=== PATIENT | male | born 1945 | race Caucasian/White ===

== ENCOUNTER 2016-06-07 15:23 | Inpatient (IN) | payer OTHER ==
[~2016-06-07] VITALS: Ht 175.3 cm; Wt 112.1 kg
[2016-06-07] MEDS ORDERED: SODIUM CHLORIDE 0.9% 1000ML 1,000 ML IV SCH (15:41)
--- NOTE | 2016-06-07 16:00 | DIAGNOSTIC IMAGING REPORT ---
CT SCAN OF THE BRAIN WITHOUT IV CONTRAST CLINICAL HISTORY: Aphasia. COMPARISON STUDY: No priors. TECHNIQUE: Unenhanced axial CT scan of the brain is performed from the vertex to the skull base. CT DOSE: 537.48 mGy.cm FINDINGS: Brain parenchyma: There are age-related involutional changes noting moderate patchy subcortical and periventricular microangiopathic change. There is no hemorrhage, mass effect, or evidence of acute territorial ischemia by CT criteria. Mineralization is noted in the basal ganglia. Martinez-white matter is preserved. No extra-axial fluid collection is seen. Ventricles, sulci, cisterns: Prominent secondary to involutional change. Intracranial vasculature: There is atherosclerotic calcification of the cavernous carotid and vertebral arteries. Calvarium: Unremarkable. Sinuses and mastoids: The visualized paranasal sinuses are clear. The mastoid air cells are well pneumatized. Orbits: The bony orbits are grossly intact. There is a left ocular lens implant. IMPRESSION: There is no hemorrhage, mass effect, or evidence of acute territorial ischemia by CT criteria. Electronically signed by: Mike Ann M.D. 06/07/2016 3:59 PM Dictated Date/Time: 06/07/2016 3:56 PM
--- NOTE | 2016-06-07 16:06 | DIAGNOSTIC IMAGING REPORT ---
CHEST ONE VIEW PORTABLE HISTORY: Stroke symptoms COMPARISON: None. FINDINGS: The lungs are clear. Cardiac silhouette is mildly enlarged. No pleural effusions. No pneumothorax. IMPRESSION: Mild cardiomegaly. Electronically signed by: Thor Paris M.D. 06/07/2016 4:05 PM Dictated Date/Time: 06/07/2016 4:04 PM
[2016-06-07] MEDS ORDERED: LABETALOL HCL IV 5 MG/ML 20ML IV STA ×2 (16:35→18:31)
[2016-06-07 16:47] LABS: BASO % 0.3 %; BASO ABS # 0.02 K/uL (0-0.2); COMPLETE YES; EOS % 4.7 %; HEMATOCRIT 37.7 % (42-52); IG% 0.8 %; LYMPH % 28.2 %; LYMPH ABS # 2.06 K/uL (1.2-3.4); MEAN CELL VOLUME 81.6 fL (80-100); MEAN CORPUSCULAR HEMOGLOBIN 28.8 pg (25-34); MEAN CORPUSCULAR HGB CONC 35.3 g/dl (32-36); MEAN PLATELET VOLUME 9.6 fL (7.4-10.4); MONO % 5.8 %; NEUT % 60.2 %; PLATELET COUNT 155 K/uL (130-400); RED BLOOD COUNT 4.62 M/uL (4.7-6.1)
[2016-06-07 16:55] LABS: PARTIAL THROMBOPLASTIN RATIO 0.9; PROTHROMBIN TIME (PATIENT) 10.9 SECONDS (9.0-12.0)
[2016-06-07] MEDS ORDERED: METF-384 PO (17:00)
[2016-06-07] MEDS ORDERED: OMEG10007 PO (17:00)
[2016-06-07] MEDS ORDERED: MELO7.5T5 PO (17:00)
[2016-06-07] MEDS ORDERED: GLIP5TAB11 PO (17:00)
[2016-06-07] MEDS ORDERED: ASPI-232 PO (17:00)
[2016-06-07] MEDS ORDERED: MAGN400T6 PO (17:00)
[2016-06-07] MEDS ORDERED: LSN5 PO (17:00)
[2016-06-07] MEDS ORDERED: METO50TA16 PO (17:00)
[2016-06-07] MEDS ORDERED: MULTTAB58 PO (17:00)
[2016-06-07 17:03] LABS: BUN/CREATININE RATIO 16.3 (10-20); CALCIUM 8.7 mg/dl (8.5-10.1); POTASSIUM 4.4 mmol/L (3.5-5.1)
[2016-06-07] MEDS ORDERED: INSDGI SC ×2 (17:03)
[2016-06-07 17:08] LABS: CKMB/CK RATIO 2.3 (0-3.0)
[2016-06-07] MEDS ORDERED: GLUCOSE 10 TABS/TUBE PO PRN (18:15)
[2016-06-07] MEDS ORDERED: POLYETHYLENE (MIRALAX) 17 GM PACK PO PRN (18:15)
[2016-06-07] MEDS ORDERED: GLUCAGON FOR INJ 1 MG VIAL SQ PRN (18:15)
[2016-06-07] MEDS ORDERED: ONDANSETRON INJ 2 MG/ML 2 ML VIAL IV PRN (18:15)
[2016-06-07] MEDS ORDERED: GLUCOSE 40% GEL 15 GM TUBE PO PRN (18:15)
[2016-06-07] MEDS ORDERED: ACETAMINOPHEN 325 MG TAB PO PRN (18:15)
[2016-06-07] MEDS ORDERED: DEXTROSE 50% 50 ML SYR IV PRN (18:15)
[2016-06-07] MEDS ORDERED: IV FLUIDS COMPLETED PRN (18:45)
--- NOTE | 2016-06-07 18:56 | History and Physical ---
History & Physical Date & Time of Service: Jun 07, 2016 at 18:31 Chief Complaint: Aphasia Primary Care Physician: No Doctor, Assigned History of Present Illness Source: patient, family 70 yoM with HTN presents with difficulty speaking for <1 minute today while driving through the bank. He reports sitting in his car and went to speak to the back vault teller, and although everything sounded clear in his head, the words came out garbled. He was unable to speak correctly for less than one minute and spontaneously cleared. He reports having a headache in the posterior head for the past two days, which is different for him, but denies any acute visual changes, drooling, facial droop, difficulty with or painful swallowing, difficulty ambulating before or after the event or any other symptom including no chest pain, shortness of breath, numbness or tingling, palpitations, abdominal pain, UTI symptoms or cold symptoms. Nothing like this has happened to him before and he denies a history of stroke or heart disease. He is overweight, has BARBARA and hypertension and receives his care through the [facility]. He just completed a heat CT and MRI of the brain last week for workup of shuffled gait for the past 6 months along with some mild memory loss for the past year. He was incidentally found to be B12 deficient, and found to have low Mg per 's report. He is a poorly controlled diabetic with apparent eye issues but no known neuropathy or other diabetic complication. He was told he needed a new spectacle prescription recently and was looking to change his glasses soon. Currently, he is without neuro deficit, headache or any other active issue at this time. He reports a family history of TIA in his sister, and a stroke in his aunt. He denies any history of migraines or seizures, and although he didn't check his sugar today, he denies any low blood sugars and reports eating breakfast and feeling well prior to and after the event. 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 Status: Chronic (2) DMII (diabetes mellitus, type 2) Status: Chronic (3) H/O pulmonary thrombosis Status: Chronic (4) Hypertension Status: Chronic (5) Obesity Status: Chronic (6) BARBARA (obstructive sleep apnea) Status: Chronic Family History FH: dementia FH: diabetes mellitus FHx: stroke Stroke or transient ischemic attack in sister Social History Smoking Status: Never Smoker Smokeless Tobacco Use: No Alcohol Use: none Drug Use: none Marital Status: Housing status: lives with significant other Occupational Status: retired Immunizations History of Influenza Vaccine: Yes Influenza Vaccine Date: Oct 30, 2015 History of Tetanus Vaccine?: Yes Tetanus Immunization Date: Nov 06, 2011 History of Pneumococcal: Yes Pneumococcal Date: Nov 06, 2011 History of Hepatitis B Vaccine: No Multi-Drug Resistant Organisms History of MDRO: No Allergies Coded Allergies: No Known Allergies (Unverified , 06/07/16) Home Medications Scheduled Aspirin (Aspir-81), 1 TAB PO DAILY Fish Oil ([place]-3), 1,000 MG PO DAILY Glipizide (Glucotrol), 5 MG PO BID Insulin Glargine (Lantus), 15 UNITS SC QAM Insulin Glargine (Lantus), 25 UNITS SC QPM Lisinopril (Lisinopril), 5 MG PO QAM Magnesium Oxide (Mag-Ox), 400 MG PO DAILY Metformin Hcl (Glucophage), 1,000 MG PO BID Metoprolol Tartrate (Lopressor) (Lopressor), 50 MG PO BID Multiple Vitamin (Multivitamin), 1 TAB PO DAILY Miscellaneous Medications Meloxicam (Mobic), 15 MG PO Review of Systems All systems were reviewed and negative except as listed in HPI above. Physical Exam Vital Signs Date Time Temp Pulse Resp B/P Pulse Ox O2 Delivery O2 Flow Rate FiO2 06/07/16 18:05 76 18 190/89 98 Room Air 06/07/16 17:35 62 18 182/81 98 Room Air 06/07/16 17:05 56 18 169/91 98 Room Air 06/07/16 16:35 57 16 175/79 98 Room Air 06/07/16 16:20 68 16 181/81 99 Room Air 06/07/16 16:05 51 16 173/84 99 Room Air 06/07/16 15:50 52 18 178/85 98 Room Air 06/07/16 15:50 98 Room Air 06/07/16 15:43 60 06/07/16 15:30 36.5 65 18 199/99 98 Room Air GEN: WNWD, in no acute distress, alert and appropriate HEENT: NC/AT, PERRL, normal sclerae CARDIO: reg rate, S1/2 heard without m/g/r LUNGS: CTA bilaterally, no crackles, rales or wheezes, good diaphragmatic excursion ABD: soft, protuberant, non-tender, non-distended, no rebound or guarding, +BS EXTREMITY: RP and DP palpable 2+ bilat, no LE swelling or edema, extremities are warm and well-perfused NEURO: CN 2-12 intact, sensation intact throughout, coordination intact (finger to nose, heel to lan, Pham) , no pronator drift, 2 BR reflex bilat, could not elicit knee reflexes. Gait was assessed at bedside and was limited as patient was trailing IV pole and hooked up to monitor, however, no turning en bloc and no shuffled gait was apparent. MUSC: 5/5 strength throughout, no focal deficits SKIN: warm and dry Diagnostics Laboratory Results Results Past 24 Hours Test 06/07/16 16:03 06/07/16 16:04 06/07/16 16:33 06/07/16 18:24 Range/Units Bedside Glucose 113 70-99 mg/dl Bedside Prothrombin Time INR 1.0 0.9-1.1 White Blood Count 7.30 4.8-10.8 K/uL Red Blood Count 4.62 4.7-6.1 M/uL Hemoglobin 13.3 14.0-18.0 g/dL Hematocrit 37.7 42-52 % Mean Corpuscular Volume 81.6 80-100 fL Mean Corpuscular Hemoglobin 28.8 25-34 pg Mean Corpuscular Hemoglobin Concent 35.3 32-36 g/dl Platelet Count 155 130-400 K/uL Mean Platelet Volume 9.6 7.4-10.4 fL Neutrophils (%) (Auto) 60.2 % Lymphocytes (%) (Auto) 28.2 % Monocytes (%) (Auto) 5.8 % Eosinophils (%) (Auto) 4.7 % Basophils (%) (Auto) 0.3 % Neutrophils # (Auto) 4.40 1.4-6.5 K/uL Lymphocytes # (Auto) 2.06 1.2-3.4 K/uL Monocytes # (Auto) 0.42 0.11-0.59 K/uL Eosinophils # (Auto) 0.34 0-0.5 K/uL Basophils # (Auto) 0.02 0-0.2 K/uL RDW Standard Deviation 41.1 36.4-46.3 fL RDW Coefficient of Variation 13.8 11.5-14.5 % Immature Granulocyte % (Auto) 0.8 % Immature Granulocyte # (Auto) 0.06 0.00-0.02 K/uL Prothrombin Time 10.9 9.0-12.0 SECONDS Prothromb Time International Ratio 1.0 0.9-1.1 Activated Partial Thromboplast Time 24.4 21.0-31.0 SECONDS Partial Thromboplastin Ratio 0.9 Sodium Level 142 136-145 mmol/L Potassium Level 4.4 3.5-5.1 mmol/L Chloride Level 109 98-107 mmol/L Carbon Dioxide Level 24 21-32 mmol/L Anion Gap 9.0 3-11 mmol/L Blood Urea Nitrogen 16 7-18 mg/dl Creatinine 1.00 0.60-1.40 mg/dl Est Creatinine Clear Calc Drug Dose 88.2 ml/min Estimated GFR () 88.6 Estimated GFR (Non- 76.5 BUN/Creatinine Ratio 16.3 10-20 Random Glucose 119 70-99 mg/dl Calcium Level 8.7 8.5-10.1 mg/dl Total Creatine Kinase 151 39-308 U/L Creatine Kinase MB 3.4 0.5-3.6 ng/ml Creatine Kinase MB Ratio 2.3 0-3.0 Troponin I 0.020 0-0.045 ng/ml Diagnostic Radiology PORT CXR: Mild cardiomegaly. CT BRAIN WO IV CONTRAST: Brain parenchyma: There are age-related involutional changes noting moderate patchy subcortical and periventricular microangiopathic change. There is no hemorrhage, mass effect, or evidence of acute territorial ischemia by CT criteria. Mineralization is noted in the basal ganglia. Martinez-white matter is preserved. No extra-axial fluid collection is seen. Intracranial vasculature: There is atherosclerotic calcification of the cavernous carotid and vertebral arteries. IMPRESSION: There is no hemorrhage, mass effect, or evidence of acute territorial ischemia by CT criteria. EKG SR 61, RBBB Impression Assessment and Plan 70 yo M with HTN presents with transient expressive aphasia for <1 minute today 1. TIA-symptoms may be consistent with TIA. Will increase ASA to 325mg PO daily and consult Neurology. Will admit to telemetry for cardiac monitoring and order workup to include TTE with bubble study, carotid doppler, and labs to include ESR, CRP, homocysteine, A1C, TSH, lipids. The patient has no focal neurologic deficits and recently underwent MRI imaging of the brain last week for memory loss and possible shuffled gait present for 6 months. PT eval requested as inpatient. Records are being requested from the [facility] in [place] for this result. He was incidentally told he had B12 deficiency, so will supplement him with this until we obtain the result to better guide therapy. CT brain imaging was negative for an acute process today. 2. HTN-pt took Lisinopril and Lopressor today but is still in the 190s systolic. Will give labetalol IV now for second dose and add PRN hydralazine for anything >160 systolic. 3. BARBARA- will order CPAP through respiratory 4. DMII-hold metformin and glipizide, inpatient glycemic consult, Lantus/ Novolog on sliding scale with carb coverage 5. h/o PE 7 years ago, off coumadin since last week-normal coag panel, no active bleeding issues DVT proph: Lovenox Full Code Dispo-to telemetry floor Catalina Palacios, DO Hospitalist Level of Care Telemetry Resuscitation Status FULL RESUSCITATION VTE Prophylaxis VTE Risk Assessment Done? Y/N: Yes Risk Level: Moderate Given or contraindicated: Enoxaparin (Lovenox)SQ Social Service Consult None Apply
[2016-06-07 19:09] LABS: C-REACTIVE PROTEIN 0.35 mg/dl (0-0.29); MAGNESIUM 1.5 mg/dl (1.8-2.4); THYROID STIMULATING HORMONE 2.11 uIu/ml (0.300-4.500)
[2016-06-07] MEDS ORDERED: PHARMACY GLYCEMIC MGMT CONSULT SCH (19:32)
[2016-06-07 19:39] LABS: BENZODIAZEPINE, URINE NEG (NEG); COCAINE,URINE NEG (NEG); PHENCYCLIDINE, URINE NEG (NEG)
[2016-06-07] MEDS ORDERED: CYANOCOBALAMIN 500 MCG TAB (VIT B-12) PO ONE (20:30)
[2016-06-07 20:44] VITALS: BP 170/77; PULSE 69; TEMP 36.7; O2SAT 96; Ht 175.3 cm; Wt 112.1 kg
--- NOTE | 2016-06-07 20:48 | Pharmacy Progress Note ---
Glycemic Control Intl Consult Date of Service Jun 07, 2016. Scope Glycemic Pharmacist consulted by Dr Palacios on 06/07/16 for glycemic control and to write orders per [facility] inpatient glycemic control protocol Objective Weight (Kilograms): 117.50 Accuchecks BSG (last 24hrs): Test 06/07/16 16:03 06/07/16 16:33 Bedside Glucose 113 mg/dl (70-99) Random Glucose 119 mg/dl (70-99) Laboratory Data (last 24hrs) Test 06/07/16 16:33 Anion Gap 9.0 mmol/L BUN/Creatinine Ratio 16.3 Blood Urea Nitrogen 16 mg/dl Creatinine 1.00 mg/dl Potassium Level 4.4 mmol/L Sodium Level 142 mmol/L White Blood Count 7.30 K/uL Red Blood Count 4.62 M/uL Hemoglobin 13.3 g/dL Hematocrit 37.7 % Mean Corpuscular Volume 81.6 fL Mean Corpuscular Hemoglobin 28.8 pg Mean Corpuscular Hemoglobin Concent 35.3 g/dl Platelet Count 155 K/uL Mean Platelet Volume 9.6 fL Neutrophils (%) (Auto) 60.2 % Lymphocytes (%) (Auto) 28.2 % Monocytes (%) (Auto) 5.8 % Eosinophils (%) (Auto) 4.7 % Basophils (%) (Auto) 0.3 % Neutrophils # (Auto) 4.40 K/uL Lymphocytes # (Auto) 2.06 K/uL Monocytes # (Auto) 0.42 K/uL Eosinophils # (Auto) 0.34 K/uL Basophils # (Auto) 0.02 K/uL HbA1c Test 06/07/16 16:33 Recent Pertinent Medications Outpatient Anti-diabetic Regimen: * Lantus 15 units Q AM + 25 units Q PM * Glipizide 5mg PO BID * Metformin 1gm PO BID * A1c = ? % The patient is currently receiving: * Basal insulin: Lantus 11 units every 12 hours * Correctional Insulin: Novolog Correction per scale ACHS Goal Range: Low 110 mg/dL - High 140 mg/dL Correction Factor: 35 mg/dL/unit * Prandial insulin: Per carb ratio of 1 unit per 12 grams CHO consumed * Oral Agents: None currently Risk Factors for Insulin Resistance: * Diet: ordered T2DM / AHA diet Assessment & Plan ASSESSMENT: 06/07/16 * Type 2 diabetic admitted this evening following a episode of aphasia; possible TIA * Patient is managed w/ 2 oral hypoglycemics and basal insulin as outpatient; level of control unknown, A1c has been ordered and results are pending * Provider's orders for Lantus and Novolog are reasonable starting points for this patient, roughly equivalent to anticipated total daily insulin dose of ~ 0.5units/kg/day. * Only suggestion would be to increase the Novolog doses slightly based upon weight, and I would add a hold parameter to the Lantus order given last two BSGs in the low 100's PLAN FOR INPATIENT GLYCEMIC CONTROL: * Continuing Lantus 11 units SQ BID - hold if BSG less than 110 * Changing correction factor to 25 mg/dl/unit * Changing carb ratio to 1 unit per 10 grams CHO consumed * Changing goal range to Low 110 mg/dL - High 140 mg/dL * Please note that the plan above was derived based on current level of insulin resistance and hospital stress. These recommendations are appropriate for inpatient admission only. Plan of care upon discharge will need to be reassessed to avoid potential outpatient hypo/hyperglycemia. Thank you.
[2016-06-07] MEDS ORDERED: METOPROLOL TARTRATE 50 MG TAB PO SCH (21:00)
[2016-06-07] MEDS: INSULIN ASPART 100 UNITS/ML 3 ML PEN SC SCH (21:00)
[2016-06-07] MEDS: ASPIRIN/ALUM/MAGNES/CAL CARB 325 MG TAB PO SCH (21:14)
[2016-06-07] MEDS: ENOXAPARIN 40 MG/0.4 ML SYR SC SCH (21:17)
[2016-06-07] MEDS: INSULIN GLARGINE SOLOSTAR 100 UNITS/ML 3 ML PEN SC SCH (21:19)
--- NOTE | 2016-06-07 22:54 | EMERGENCY ROOM VISIT NOTE ---
History Report prepared by Libiaibsebastian: Amina Lanier Under the Supervision of: Dr. Augusto Lopez M.D. First contact with patient: 15:31 Chief Complaint: OTHER COMPLAINT Stated Complaint: APHASIA History of Present Illness The patient is a 70 year old male who presents to the Emergency Room with complaints of an episode of resolved aphasia. He was brought to the ED via EMS. The patient reports he went to the bank this morning when he noticed he "just couldn't talk right" while in the bank drive through. The episode lasted between 30 seconds and 1 minute. He then called his son, who took him to the [facility] in [place], [place], where he had blood work and an EKG performed. The patient denies any vision changes, difficulty walking, vertigo or difficulty swallowing. He admits to "a little bit of a headache" in the back of his head that started around 0900 this morning. He denies any chest pain, shortness of breath or abdominal pain. He experienced PE's approximately 7 years ago, and was on regular Coumadin until 5 days ago, when his doctors took him off the Coumadin, because "his labs looked normal". He denies any numbness or weakness. Source of History: patient, EMS, nursing staff Onset: 1200 today Position: other (global) Quality: other (Aphasia) Timing: resolved Associated Symptoms: + headache, No SOB, No abdominal pain, No chest pain, No numbness, No weakness Review of Systems See HPI for pertinent positives & negatives. A total of 10 systems reviewed and were otherwise negative. 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 (2) DMII (diabetes mellitus, type 2) (3) H/O pulmonary thrombosis (4) Hypertension (5) Obesity (6) BARBARA (obstructive sleep apnea) (7) Pulmonary embolism (8) TIA (transient ischemic attack) Surgical Problems: (1) History of left shoulder replacement Social History Alcohol Use: occasionally Drug Use: none Marital Status: Housing Status: lives with family Occupation Status: retired Current/Historical Medications Scheduled Aspirin (Aspir-81), 1 TAB PO DAILY Fish Oil (Rosharon-3), 1,000 MG PO DAILY Glipizide (Glucotrol), 5 MG PO BID Insulin Glargine (Lantus), 15 UNITS SC QAM Insulin Glargine (Lantus), 25 UNITS SC QPM Lisinopril (Lisinopril), 5 MG PO QAM Magnesium Oxide (Mag-Ox), 400 MG PO DAILY Metformin Hcl (Glucophage), 1,000 MG PO BID Metoprolol Tartrate (Lopressor) (Lopressor), 50 MG PO BID Multiple Vitamin (Multivitamin), 1 TAB PO DAILY Miscellaneous Medications Meloxicam (Mobic), 15 MG PO Allergies Coded Allergies: No Known Allergies (Unverified , 06/07/16) Physical Exam Vital Signs Date Time Temp Pulse Resp B/P Pulse Ox O2 Delivery O2 Flow Rate FiO2 06/07/16 18:05 76 18 190/89 98 Room Air 06/07/16 17:35 62 18 182/81 98 Room Air 06/07/16 17:05 56 18 169/91 98 Room Air 06/07/16 16:35 57 16 175/79 98 Room Air 06/07/16 16:20 68 16 181/81 99 Room Air 06/07/16 16:05 51 16 173/84 99 Room Air 06/07/16 15:50 52 18 178/85 98 Room Air 06/07/16 15:50 98 Room Air 06/07/16 15:43 60 06/07/16 15:30 36.5 65 18 199/99 98 Room Air Physical Exam Constitutional: Vital signs reviewed. Eyes: Pupils are equal round reactive to light. Conjunctiva are noninjected. ENT: Pharynx is clear without erythema or exudate. Mucous membranes are moist. Neck supple without meningeal signs. Respiratory: Clear to auscultation bilaterally. Breath sounds are equal bilaterally. Cardiovascular: Regular rate and rhythm. No rubs or gallops. GI: Soft, nondistended and nontender. Bowel sounds are present. Musculoskeletal: No peripheral edema. No lower extremity tenderness. Integumentary: No cyanosis. Neurological: The patient is awake and alert. Cranial nerves II-XII are intact. Motor is 5 out of 5 all extremities. Sensation is intact to light touch all extremities. Normal speech. No pronator drift. No limb ataxia. Psychiatric: Normal affect. Medical Decision & Procedures ER Provider Diagnostic Interpretation: This CT scan was reviewed and interpreted by the radiologist and reviewed by myself. CT SCAN OF THE BRAIN WITHOUT IV CONTRAST CLINICAL HISTORY: Aphasia. COMPARISON STUDY: No priors. TECHNIQUE: Unenhanced axial CT scan of the brain is performed from the vertex to the skull base. CT DOSE: 537.48 mGy.cm FINDINGS: Brain parenchyma: There are age-related involutional changes noting moderate patchy subcortical and periventricular microangiopathic change. There is no hemorrhage, mass effect, or evidence of acute territorial ischemia by CT criteria. Mineralization is noted in the basal ganglia. Martinez-white matter is preserved. No extra-axial fluid collection is seen. Ventricles, sulci, cisterns: Prominent secondary to involutional change. Intracranial vasculature: There is atherosclerotic calcification of the cavernous carotid and vertebral arteries. Calvarium: Unremarkable. Sinuses and mastoids: The visualized paranasal sinuses are clear. The mastoid air cells are well pneumatized. Orbits: The bony orbits are grossly intact. There is a left ocular lens implant. IMPRESSION: There is no hemorrhage, mass effect, or evidence of acute territorial ischemia by CT criteria. Electronically signed by: Mike Ann M.D. 06/07/2016 3:59 PM This X-Ray was reviewed and interpreted by myself and the radiologist. CHEST ONE VIEW PORTABLE HISTORY: Stroke symptoms COMPARISON: None. FINDINGS: The lungs are clear. Cardiac silhouette is mildly enlarged. No pleural effusions. No pneumothorax. IMPRESSION: Mild cardiomegaly. Electronically signed by: Thor Paris M.D. 06/07/2016 4:05 PM Laboratory Results 06/07/16 16:33 Red Blood Count 4.62, Mean Corpuscular Volume 81.6, Mean Corpuscular Hemoglobin 28.8, Mean Corpuscular Hemoglobin Concent 35.3, Mean Platelet Volume 9.6, Neutrophils (%) (Auto) 60.2, Lymphocytes (%) (Auto) 28.2, Monocytes (%) (Auto) 5.8, Eosinophils (%) (Auto) 4.7, Basophils (%) (Auto) 0.3, Neutrophils # (Auto) 4.40, Lymphocytes # (Auto) 2.06, Monocytes # (Auto) 0.42, Eosinophils # (Auto) 0.34, Basophils # (Auto) 0.02 06/07/16 16:33 Test 06/07/16 16:04 06/07/16 16:33 Bedside Prothrombin Time INR 1.0 (0.9-1.1) White Blood Count 7.30 K/uL (4.8-10.8) Red Blood Count 4.62 M/uL (4.7-6.1) Hemoglobin 13.3 g/dL (14.0-18.0) Hematocrit 37.7 % (42-52) Mean Corpuscular Volume 81.6 fL (80-100) Mean Corpuscular Hemoglobin 28.8 pg (25-34) Mean Corpuscular Hemoglobin Concent 35.3 g/dl (32-36) Platelet Count 155 K/uL (130-400) Mean Platelet Volume 9.6 fL (7.4-10.4) Neutrophils (%) (Auto) 60.2 % Lymphocytes (%) (Auto) 28.2 % Monocytes (%) (Auto) 5.8 % Eosinophils (%) (Auto) 4.7 % Basophils (%) (Auto) 0.3 % Neutrophils # (Auto) 4.40 K/uL (1.4-6.5) Lymphocytes # (Auto) 2.06 K/uL (1.2-3.4) Monocytes # (Auto) 0.42 K/uL (0.11-0.59) Eosinophils # (Auto) 0.34 K/uL (0-0.5) Basophils # (Auto) 0.02 K/uL (0-0.2) RDW Standard Deviation 41.1 fL (36.4-46.3) RDW Coefficient of Variation 13.8 % (11.5-14.5) Immature Granulocyte % (Auto) 0.8 % Immature Granulocyte # (Auto) 0.06 K/uL (0.00-0.02) Erythrocyte Sedimentation Rate 6 mm/hr (0-14) Prothrombin Time 10.9 SECONDS (9.0-12.0) Prothromb Time International Ratio 1.0 (0.9-1.1) Activated Partial Thromboplast Time 24.4 SECONDS (21.0-31.0) Partial Thromboplastin Ratio 0.9 Anion Gap 9.0 mmol/L (3-11) Est Creatinine Clear Calc Drug Dose 88.2 ml/min Estimated GFR () 88.6 Estimated GFR (Non- 76.5 BUN/Creatinine Ratio 16.3 (10-20) Calcium Level 8.7 mg/dl (8.5-10.1) Magnesium Level 1.5 mg/dl (1.8-2.4) Total Creatine Kinase 151 U/L (39-308) Creatine Kinase MB 3.4 ng/ml (0.5-3.6) Creatine Kinase MB Ratio 2.3 (0-3.0) Troponin I 0.020 ng/ml (0-0.045) C-Reactive Protein 0.35 mg/dl (0-0.29) Thyroid Stimulating Hormone (TSH) 2.110 uIu/ml (0.300-4.500) Hepatitis C Antibody Screen NEG (NEG) Laboratory results as reviewed by me. Medications Administered Medications (Trade) Dose Ordered Sig/Flor Route Start Time Stop Time Status Last Admin Dose Admin Sodium Chloride (Nss 1000ml) 1,000 ml @ 50 mls/hr Q20H IV 06/07/16 15:41 06/07/16 20:18 DC 06/07/16 16:15 50 MLS/HR ECG Indication: other (aphasia) Rate (beats per minute): 61 Rhythm: normal sinus (normal sinus rhythm) Findings: RBBB, no ectopy ED Course 1534: The patient was evaluated in room B4. A complete history and physical exam was performed. 1541: NSS 1000 ml @ 50 mls/hr IV. 1635: Labetalol 10 mg IV. 1705: I reevaluated the patient. I discussed his test results and my recommendation that he remain in the hospital for further evaluation and management and he verbalized complete understanding and agreement. 1713: I discussed the patients case with Dr. Palacios, [facility] Hospitalist. The patient will be further evaluated. Medical Decision This is a 70-year-old male who presents with difficulty with his speech. Differential diagnosis includes TIA, CVA, intracranial mass, intracranial hemorrhage, metabolic derangement. I did perform a limited focused review of portions of the patient's old chart on the electronic medical record. The patient has had no prior visits to this hospital. His lab work at [facility] today showed a Glucose of 192, but otherwise normal chemistry's. The patient had an MRI at the [facility] last week. His blood pressure was 206/103 during that visit. I did evaluate the patient as noted above. The patient is presenting with symptoms consistent with expressive aphasia. It lasted less than a minute. He is currently neurologically intact. IV access was established. The patient was placed on a continuous radiographer cardiac catheterization. I did order and personally review the patient's 12-lead EKG and chest x-ray as described above. I did order and review the patient's blood work as noted in the electronic medical record. I did order a CT of the head. I did review the images myself as well as the radiology report as described above. There is no evidence of acute intracranial hemorrhage. His blood pressure was elevated. I initially ordered labetalol but it came down on its own so I canceled the order.I did discuss the test results with the patient and his family. I did recommend hospitalization for further care and evaluation. I did discuss the case with the hospitalist and correctional counselor/case manager. Consults Time Called: 171 Consulting Physician: Eric Bryson Hospitalist Returned Call: [phone] I discussed the patients case with [facility]. The patient will be further evaluated. Impression Primary Impression: TIA (transient ischemic attack) Scribe Attestation The scribe's documentation has been prepared under my direct and personally reviewed by me in its entirety. I confirm that the note above accurately reflects all work, treatment, procedures, and medical decision making performed by me. Departure Information Dispostion Being Evaluated By Hospitalist Patient Instructions My [facility] Problem Qualifiers Primary Impression: TIA (transient ischemic attack) Transient cerebral ischemia type: unspecified Qualified Codes: G45.9 - Transient cerebral ischemic attack, unspecified
[2016-06-07 23:09] VITALS: PULSE 58; O2SAT 98
[2016-06-07 23:26] VITALS: BP 152/56; PULSE 50; TEMP 35.9; O2SAT 97
[2016-06-08] VITALS (9 sets, daily range): BP systolic 142–187; BP diastolic 70–88; PULSE 50–72; TEMP 36–36.7; O2SAT 95–99
[2016-06-08 05:52] LABS: ESTIMATED AVERAGE GLUCOSE 169 mg/dl; HA1C FLAG Normal (Normal)
[2016-06-08 06:29] LABS: HEMATOCRIT 36.6 % (42-52); MEAN CELL VOLUME 83.6 fL (80-100); MEAN CORPUSCULAR HEMOGLOBIN 29.2 pg (25-34); MEAN PLATELET VOLUME 9.8 fL (7.4-10.4); PLATELET COUNT 143 K/uL (130-400); RED BLOOD COUNT 4.38 M/uL (4.7-6.1); WHITE BLOOD COUNT 6.37 K/uL (4.8-10.8)
[2016-06-08 07:00] LABS: BUN/CREATININE RATIO 13.6 (10-20); CREATININE 1.3 mg/dl (0.60-1.40); MAGNESIUM 1.5 mg/dl (1.8-2.4)
[2016-06-08] MEDS: INSULIN ASPART 100 UNITS/ML 3 ML PEN SC SCH ×4 (07:00→20:22)
[2016-06-08 07:03] LABS: ALB/GLOB RATIO 0.9 (0.9-2); CHOLESTEROL/HDL RATIO 7.7
[2016-06-08] MEDS: MAGNESIUM SULFATE 1GM / D5W 1 GM in PREMIXED IN D5W 100 ML IV SCH ×2 (08:57→12:50)
[2016-06-08] MEDS: ASPIRIN/ALUM/MAGNES/CAL CARB 325 MG TAB PO SCH (08:58)
[2016-06-08] MEDS: MULTIVITAMIN TAB PO SCH (08:59)
[2016-06-08] MEDS: CYANOCOBALAMIN 500 MCG TAB (VIT B-12) PO SCH (08:59)
[2016-06-08] MEDS: OMEGA-3 (PURIFIED FISH OIL) 1 GM CAP PO SCH (08:59)
[2016-06-08] MEDS: MAGNESIUM OXIDE 400 MG TAB PO SCH (08:59)
[2016-06-08] MEDS ORDERED: ASPIRIN 81 MG ECTAB PO SCH (09:00)
[2016-06-08] MEDS ORDERED: LISINOPRIL 5 MG TAB PO SCH (09:00)
[2016-06-08] MEDS: INSULIN GLARGINE SOLOSTAR 100 UNITS/ML 3 ML PEN SC SCH ×2 (09:05→20:22)
--- NOTE | 2016-06-08 11:04 | Progress Note ---
Internal Med Progress Note Date of Service: Jun 08, 2016. Provider Documentation: SUBJECTIVE: Patient is doing well No aphasia, localized weakness, nausea, vomiting, headaches, numbness/tingling, facial asymmetry, fever, chills. Tele- Sinus bradycardia with heart rate as low as 30, now 58 OBJECTIVE: Vital Signs-as noted below Exam: General-AAOX3, obese, no distress Eyes-PERRLA, No icterus Neck-Supple, no bruits Lungs-AEBE, no wheezing, crackles Heart-Sinus bradycardia, no murmurs Abdomen-Soft, non tender, non distended, BS present Extremities-No edema Neuro-AAOX3, Cranial nerves intact, Power 5/5 all extremities Lab data as noted below. ASSESSMENT & PLAN: Assessment and plan: 70 yo M with HTN presented with transient expressive aphasia for <1 minute. TIA Had < 1 minute episode of expressive aphasia for which he was transferred from [facility] to [facility] ER. Symptoms resolved on evaluation in ED and by admitting physician. No deficits on my evaluation today Risk factors: Hx of Atrial fibrillation (was on coumadin x 7 days till few days ago - indication for DVT/PE), HTN -On ASA 325 mg (increased from 81 mg) -Work up- MRI was done last week for memory loss, possible shuffled gait x 6 months--> negative per , Carotid US done too- negative per , Holter monitor- no A fib or bradycardia. -Discussed with neurology--> Will order MRI, MRA Head/Neck, Echo with bubble study, hypercoag profile . May consider re starting Coumadin SINUS BRADYCARDIA, ASYMPTOMATIC -HR overnight did drop down to as low as 30, asymptomatic. Did not use his CPAP mask. Received 2 doses of IV Labetalol 10 mg yesterday evening -Since AM HR is in high 50s -Will decrease metoprolol to 25 mg PO BID with holding parameters for HR < 50 -Monitored tele strips. 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 HX OF ATRIAL FIBRILLATION -On Metoprolol 50 mg PO BID--> will reduce it to 25 mg po bid due to sinus bradycardia with holding parameters. Was changed from Atenolol to Metoprolol in March 2016 -Off coumadin since few days . Was on it for PE/DVT mainly 7 years ago -Holter monitor- few weeks ago- no issues per . No bradycardia episodes -Monitor on tele monitor HTN- Stable -Continue with lisinopril, lopressor DM-II Hold PO medications -ISS, Accuchecks BARBARA- On CPAP, but didnt use it much due to mask issues DVT proph: Lovenox SQ Full Code Dispo Continue with tele monitoring Vital Signs: Date Time Temp Pulse Resp B/P Pulse Ox O2 Delivery O2 Flow Rate FiO2 06/08/16 07:52 36.6 58 19 167/82 98 Room Air 06/08/16 04:00 CPAP 06/08/16 03:13 36.0 50 18 142/70 97 CPAP 06/07/16 23:30 CPAP 06/07/16 23:26 35.9 50 21 152/56 97 CPAP 06/07/16 23:09 58 98 06/07/16 20:44 36.7 69 16 170/77 96 Room Air 06/07/16 18:41 57 18 171/91 97 Room Air 06/07/16 18:05 76 18 190/89 98 Room Air 06/07/16 17:35 62 18 182/81 98 Room Air 06/07/16 17:05 56 18 169/91 98 Room Air 06/07/16 16:35 57 16 175/79 98 Room Air 06/07/16 16:20 68 16 181/81 99 Room Air 06/07/16 16:05 51 16 173/84 99 Room Air 06/07/16 15:50 52 18 178/85 98 Room Air 06/07/16 15:50 98 Room Air 06/07/16 15:43 60 06/07/16 15:30 36.5 65 18 199/99 98 Room Air Lab Results: Results Past 24 Hours Test 06/07/16 16:03 06/07/16 16:04 06/07/16 16:33 06/07/16 18:37 Range/Units Bedside Glucose 113 70-99 mg/dl Bedside Prothrombin Time INR 1.0 0.9-1.1 White Blood Count 7.30 4.8-10.8 K/uL Red Blood Count 4.62 4.7-6.1 M/uL Hemoglobin 13.3 14.0-18.0 g/dL Hematocrit 37.7 42-52 % Mean Corpuscular Volume 81.6 80-100 fL Mean Corpuscular Hemoglobin 28.8 25-34 pg Mean Corpuscular Hemoglobin Concent 35.3 32-36 g/dl Platelet Count 155 130-400 K/uL Mean Platelet Volume 9.6 7.4-10.4 fL Neutrophils (%) (Auto) 60.2 % Lymphocytes (%) (Auto) 28.2 % Monocytes (%) (Auto) 5.8 % Eosinophils (%) (Auto) 4.7 % Basophils (%) (Auto) 0.3 % Neutrophils # (Auto) 4.40 1.4-6.5 K/uL Lymphocytes # (Auto) 2.06 1.2-3.4 K/uL Monocytes # (Auto) 0.42 0.11-0.59 K/uL Eosinophils # (Auto) 0.34 0-0.5 K/uL Basophils # (Auto) 0.02 0-0.2 K/uL RDW Standard Deviation 41.1 36.4-46.3 fL RDW Coefficient of Variation 13.8 11.5-14.5 % Immature Granulocyte % (Auto) 0.8 % Immature Granulocyte # (Auto) 0.06 0.00-0.02 K/uL Erythrocyte Sedimentation Rate 6 0-14 mm/hr Prothrombin Time 10.9 9.0-12.0 SECONDS Prothromb Time International Ratio 1.0 0.9-1.1 Activated Partial Thromboplast Time 24.4 21.0-31.0 SECONDS Partial Thromboplastin Ratio 0.9 Sodium Level 142 136-145 mmol/L Potassium Level 4.4 3.5-5.1 mmol/L Chloride Level 109 98-107 mmol/L Carbon Dioxide Level 24 21-32 mmol/L Anion Gap 9.0 3-11 mmol/L Blood Urea Nitrogen 16 7-18 mg/dl Creatinine 1.00 0.60-1.40 mg/dl Est Creatinine Clear Calc Drug Dose 88.2 ml/min Estimated GFR () 88.6 Estimated GFR (Non- 76.5 BUN/Creatinine Ratio 16.3 10-20 Random Glucose 119 70-99 mg/dl Estimated Average Glucose 169 mg/dl Hemoglobin A1c 7.5 4.5-5.6 % Calcium Level 8.7 8.5-10.1 mg/dl Magnesium Level 1.5 1.8-2.4 mg/dl Total Creatine Kinase 151 39-308 U/L Creatine Kinase MB 3.4 0.5-3.6 ng/ml Creatine Kinase MB Ratio 2.3 0-3.0 Troponin I 0.020 0-0.045 ng/ml C-Reactive Protein 0.35 0-0.29 mg/dl Thyroid Stimulating Hormone (TSH) 2.110 0.300-4.500 uIu/ml Hepatitis C Antibody Screen NEG NEG Urine Opiates Screen NEG NEG Urine Methadone, Qualitative NEG NEG Urine Barbiturates NEG NEG Urine Phencyclidine (PCP) Level NEG NEG Ur Amphetamine/Methamphetamine NEG NEG MDMA (Ecstasy) Screen NEG NEG Urine Benzodiazepines Screen NEG NEG Urine Cocaine Metabolite NEG NEG Urine Marijuana (THC) NEG NEG Test 06/07/16 18:58 06/07/16 20:47 06/08/16 05:55 06/08/16 06:41 Range/Units 25-Hydroxy Vitamin D Total 18.5 30-100 ng/ml Bedside Glucose 130 132 70-99 mg/dl White Blood Count 6.37 4.8-10.8 K/uL Red Blood Count 4.38 4.7-6.1 M/uL Hemoglobin 12.8 14.0-18.0 g/dL Hematocrit 36.6 42-52 % Mean Corpuscular Volume 83.6 80-100 fL Mean Corpuscular Hemoglobin 29.2 25-34 pg Mean Corpuscular Hemoglobin Concent 35.0 32-36 g/dl RDW Standard Deviation 41.5 36.4-46.3 fL RDW Coefficient of Variation 13.7 11.5-14.5 % Platelet Count 143 130-400 K/uL Mean Platelet Volume 9.8 7.4-10.4 fL Sodium Level 142 136-145 mmol/L Potassium Level 4.0 3.5-5.1 mmol/L Chloride Level 108 98-107 mmol/L Carbon Dioxide Level 25 21-32 mmol/L Anion Gap 9.0 3-11 mmol/L Blood Urea Nitrogen 18 7-18 mg/dl Creatinine 1.30 0.60-1.40 mg/dl Est Creatinine Clear Calc Drug Dose 66.3 ml/min Estimated GFR () 64.5 Estimated GFR (Non- 55.7 BUN/Creatinine Ratio 13.6 10-20 Random Glucose 130 70-99 mg/dl Calcium Level 8.0 8.5-10.1 mg/dl Magnesium Level 1.5 1.8-2.4 mg/dl Total Bilirubin 0.4 0.2-1 mg/dl Aspartate Amino Transf (AST/SGOT) 22 15-37 U/L Alanine Aminotransferase (ALT/SGPT) 38 12-78 U/L Alkaline Phosphatase 57 45-117 U/L Total Protein 6.4 6.4-8.2 gm/dl Albumin 3.0 3.4-5.0 gm/dl Globulin 3.4 2.5-4.0 gm/dl Albumin/Globulin Ratio 0.9 0.9-2 Triglycerides Level 407 0-150 mg/dl Cholesterol Level 192 0-200 mg/dl HDL Cholesterol 25 mg/dl LDL Cholesterol, Calculated mg/dl VLDL Cholesterol, Calculated mg/dl Cholesterol/HDL Ratio 7.7
--- NOTE | 2016-06-08 11:53 | DIAGNOSTIC IMAGING REPORT ---
ULTRASOUND OF THE CAROTID ARTERIES CLINICAL HISTORY: Transient ischemic attack COMPARISON STUDY: None. TECHNIQUE: Real-time, grayscale, and color Doppler sonography of the carotid arteries was performed. Imaging reviewed in the transverse and longitudinal planes. NASCET criteria was utilized for stenosis calcification. FINDINGS: There is minimal atherosclerotic plaque present . The peak systolic velocity within the right internal carotid artery is 84 cm/sec. The systolic velocity ratio of right internal to common carotid artery is 1.1. The peak systolic velocity within the left internal carotid artery is 64 cm/sec. The systolic velocity ratio left internal to common carotid artery is 0.7. Antegrade flow is seen in the vertebral arteries. The external carotid arteries are patent. Blood pressure in the right arm measured 187 mm/Hg. Blood pressure in the left arm measured 192 mm/Hg. IMPRESSION: No evidence of hemodynamically significant carotid stenosis. Electronically signed by: Abisai Barillas M.D. 06/08/2016 11:52 AM Dictated Date/Time: 06/08/2016 11:51 AM
--- NOTE | 2016-06-08 11:55 | ECHOCARDIOGRAM REPORT ---
*NOTICE TO RECEIVING [employer] This information is strictly Confidential and protected under [place] law. [place] law prohibits you from making any further disclosure of this information unless further disclosure is expressly permitted by the written consent of the person to whom it pertains or is authorized by law. A general authorization for the release of medical or other information is not sufficient for this purpose. Hospital accepts no responsibility if the information is made available to any other person, INCLUDING THE PATIENT. Interpretation Summary * Name: XIANG GRACIA Study Date: 06/08/2016 09:16 AM BP: 142/70 mmHg * Patient Location: C.2T\S\S239\S\2 HR: 62 * : 1945 (M/d/yyy) Gender: Male Height: 69 in * Age: 70 yrs Ethnicity: [place] Weight: 259 lb * Ordering Physician: Catalina Palacios * Referring Physician: Self, Referred * Performed By: Shoaib Clark RDCS * * Reason For Study: TIA symptoms * BSA: 2.3 m2 * -- Conclusions -- * Normal LV chamber size with moderate concentric LVH. * Normal LV systolic function, EF 55-60%. * No segmental left ventricular wall motion abnormalities are noted. * Grade II diastolic dysfunction. * Aortic valve sclerosis mild, without significant aortic valvular stenosis. * Intact interatrial septum. Procedure Details * A complete two-dimensional transthoracic echocardiogram was performed (2D, M-mode, Doppler and color flow Doppler). * The study was technically adequate. * A saline contrast injection was performed to assess for cardiac shunting. * The injection was performed through an intravenous line in the left arm. * The attending nurse who injected the saline contrast was ROZINA Menchaca. * A total of 20 cc of agitated saline was given. Left Ventricle * The left ventricle is normal in size. * There is moderate concentric left ventricular hypertrophy. * Left ventricular systolic function is normal. * No segmental left ventricular wall motion abnormalities are noted. * Ejection Fraction = 55-60%. * The left ventricular wall motion is normal. Right Ventricle * The right ventricular cavity size is normal (basal dimension <4.2 cm in right ventricular apical 4-chamber view). * The right ventricular systolic function is normal as assessed by tricuspid annular plane systolic excursion (TAPSE) (normal >1.5 cm). Atria * The left atrium is mildly dilated. * Right atrial size is normal. * The interatrial septum is intact with no evidence for an atrial septal defect. Mitral Valve * The mitral valve is normal in structure and function. Tricuspid Valve * The tricuspid valve is normal in structure and function. Aortic Valve * The aortic valve is trileaflet. * Aortic valve sclerosis mild, without significant aortic valvular stenosis. * There is no significant aortic regurgitation. Pulmonic Valve * The pulmonary valve is not well seen, but the Doppler examination is normal without significant regurgitation or stenosis. Great Vessels * The aortic root and proximal ascending aorta are normal sized. Pericardium/Pleural * There is no pericardial effusion. Left Ventricular Diastolic Function * Diastolic dysfunction, Grade II (pseudonormalization pattern). MMode 2D Measurements and Calculations IVSd 1.4 cm IVSs 2.0 cm LVIDd 5.2 cm LVIDs 3.5 cm LVPWd 1.4 cm LVPWs 1.8 cm IVS/LVPW 0.97 FS 33.0 % EDV(Teich) 128.0 ml ESV(Teich) 49.7 ml EF(Teich) 61.2 % EDV(cubed) 138.5 ml ESV(cubed) 41.7 ml EF(cubed) 69.9 % % IVS thick 49.3 % % LVPW thick 29.2 % LV mass(C)d 302.3 grams LV mass(C)dI 131.1 grams/m\S\2 LV mass(C)s 292.2 grams LV mass(C)sI 126.8 grams/m\S\2 SV(Teich) 78.3 ml SI(Teich) 34.0 ml/m\S\2 SV(cubed) 96.8 ml SI(cubed) 42.0 ml/m\S\2 EPSS 0.82 cm Ao root diam 3.3 cm Ao root area 8.5 cm\S\2 ACS 2.5 cm LA dimension 4.5 cm asc Aorta Diam 3.6 cm LA/Ao 1.4 LVOT diam 2.0 cm LVOT area 3.1 cm\S\2 LVAd ap4 42.7 cm\S\2 LVLd ap4 10.0 cm EDV(MOD-sp4) 152.0 ml LVAs ap4 23.8 cm\S\2 LVLs ap4 8.5 cm ESV(MOD-sp4) 60.0 ml EF(MOD-sp4) 60.5 % LVAd ap2 34.5 cm\S\2 LVLd ap2 9.5 cm EDV(MOD-sp2) 102.0 ml LVAs ap2 19.4 cm\S\2 LVLs ap2 7.8 cm ESV(MOD-sp2) 42.0 ml EF(MOD-sp2) 58.8 % SV(MOD-sp4) 92.0 ml SI(MOD-sp4) 39.9 ml/m\S\2 SV(MOD-sp2) 60.0 ml SI(MOD-sp2) 26.0 ml/m\S\2 Doppler Measurements and Calculations MV E max [place] 95.3 cm/sec MV A max [place] 89.2 cm/sec MV E/A 1.1 MV dec time 0.15 sec Ao V2 max 149.3 cm/sec Ao max PG 8.9 mmHg Ao max PG (full) 4.9 mmHg ANDREW(V,A) 2.1 cm\S\2 ANDREW(V,D) 2.1 cm\S\2 AI end-d [place] 175.5 cm/sec AI max [place] 238.7 cm/sec AI max PG 23.0 mmHg AI dec slope 91.9 cm/sec\S\2 AI P1/2t 760.5 msec LV V1 max PG 4.0 mmHg LV V1 max 100.6 cm/sec PA V2 max 88.6 cm/sec PA max PG 3.1 mmHg PI end-d [place] 96.9 cm/sec
--- NOTE | 2016-06-08 12:25 | NEUROLOGY CONSULTATION ---
DATE OF CONSULTATION: 06/08/2016 DATE OF CONSULTATION: 06/08/2016. REASON FOR CONSULTATION: Possible transient ischemic attack. HISTORY OF PRESENT ILLNESS: The patient is a 70-year-old right-handed male who while going through a drive-through yesterday by itself in the care noted expressive language dysfunction lasting about a minute. Of course he was otherwise not speaking well in the car as he was alone. He had had a mild occipital headache for several days which was non-bothersome but somewhat unusual. He did not have any other neurologic symptoms such as change in vision, facial droop, numbness, weakness, vertigo. There is no chest pain, palpitations or shortness of breath. Of interest, he had just completed a CT of the head and MRI of the brain last week for workup of a shuffling gait to exclude normal pressure hydrocephalus. Apparently the evaluation did not show anything of significance. Of interest about 8 years ago, the patient had a DVT with PE after [place]. The workup of that is unknown and at the time he had some transient atrial fibrillation. [facility] to see if he needed ongoing anticoagulant use and this included an echo, a 24-hour heart monitor, which did not show any atrial fibrillation. About 10 days ago, he was switched from Coumadin to aspirin. The patient denies prior transient ischemia. His blood sugar was checked later in the day and was unremarkable. There was no diaphoresis associated with this. No chest pain, palpitations, shortness of breath. His weight has been stable. He has not had any head or neck injury, medical or dental procedures. The only change in medication was in March he was switched from atenolol to metoprolol. His CT of the head noncontrast is grossly normal. His electrocardiogram on exam showed normal sinus rhythm, right bundle branch block, but over the night his heart rate was in the 30s and 40s and at 7:00 a.m. this morning he had a heart rate of 29 in a sinus bradycardia for which he was asymptomatic. LABORATORY DATA: Labs on admission white count 7.3, H\T\H 13.3/37, platelet count 155. Sed rate 6. PT 10.9, PTT 24.4, hypercoagulable state workup pending. Point of care blood sugar was 130, random glucose 130, calcium 8, magnesium 1.5, triglycerides 407, cholesterol 192, LDL could not be calculated as triglycerides were greater than 400. Tox screen was negative. PAST MEDICAL HISTORY: Notable for hypertension, diabetes, hyperlipidemia, DVT, obstructive sleep apnea. FAMILY HISTORY: Stroke. SOCIAL HISTORY: Nonsmoker, nondrinker. 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 MEDICATIONS ON ADMISSION: Aspirin 81, fish oil, glipizide, insulin, lisinopril, magnesium, metformin, metoprolol, multiple vitamin, Meloxicam. PHYSICAL EXAMINATION: VITAL SIGNS: 36.6, 58 and 19, 157/82, 98%. GENERAL: The patient is awake and alert. There is normal speech and language and his affect is appropriate. Pulses are palpable in both feet. There is no calf swelling or tenderness. NECK: There are no carotid bruits. HEART: No heart murmurs. Heart is regular rate and rhythm. He is oriented to hospital, although did not know the name. He knew the year. No right/left confusion or aphasia is noted. Pupils are equal. Optic nerves are difficult to visualize. There are normal ruiz, motility, facial sensation, facial asymmetry. Tongue is midline. Speech is nondysarthric. Motor: Normal bulk and tone. No resting tremor. There is full strength, diminished reflexes in the lower extremities, downgoing toes. Vibration is present at the right great toe and left ankle. No ngkg-ng-jvqv sensory loss noted. Aduzeg-jw-bzkf and qmtf-yl-bdza are normal. Gait is unremarkable. ABDOMEN: Protuberant. IMPRESSION: Probable transient ischemic attack consisting of expressive aphasia. PLAN: Repeat MRI brain, MRA neck and head, echo with bubble study, hypercoagulable state workup, risk modification including treating hypertriglyceridemia, assessing LDL. It is of significant interest that this patient previously had a DVT and PE and at that time some atrial fibrillation and that this episode occurred 10 days after anticoagulants were discontinued. Likely we will make the recommendation that he be placed on Coumadin and perhaps a CardioNet monitor be performed as an outpatient and extended CardioNet monitor be performed as an outpatient to evaluate for atrial fibrillation. Will follow with you. BO
[2016-06-08] MEDS: HydrALAZINE HCL 20 MG/ML VIAL IV. PRN ×2 (15:11→23:55)
--- NOTE | 2016-06-08 16:44 | DIAGNOSTIC IMAGING REPORT ---
MRI OF THE BRAIN WITHOUT CONTRAST CLINICAL HISTORY: Transient ischemic attack COMPARISON STUDY: Head CT dated 06/07/2016 FINDINGS: Sagittal T1, axial diffusion, proton density and T2 weighted axial, coronal FLAIR, and axial T1-weighted images were acquired. No intra or extra-axial mass lesions are visualized Axial diffusion-weighted images reveal no evidence of acute or subacute infarction. There is no evidence of ventricular dilatation. Proton density T2-weighted and FLAIR images reveal moderate foci of increased T2 signal within the white matter, likely on a small vessel basis. There is a focus of increased FLAIR signal within the subcortical left white matter, statistically secondary to a prior subcortical white matter infarct. There are no abnormal flow voids. IMPRESSION: 1. No evidence of intracranial mass on this noncontrast study 2. No evidence of acute or subacute infarction 3. Focus of increased T2 and FLAIR signal within the subcortical left frontal white matter. This is likely secondary to a prior ischemic insult. If there is clinical concern over other pathology such as an underlying mass with secondary edema, a contrast-enhanced study could be obtained in follow-up. Electronically signed by: Abisai Barillas M.D. 06/08/2016 4:42 PM Dictated Date/Time: 06/08/2016 4:37 PM
--- NOTE | 2016-06-08 17:08 | DIAGNOSTIC IMAGING REPORT ---
MR ANGIOGRAPHY OF THE [place] NO CONTRAST CLINICAL HISTORY: Transient ischemic attack COMPARISON STUDY: None. A 3-D [id number]-[id number] MR angiographic sequence of the [place] was performed. Both the source and projection images were reviewed. There is no evidence of major intracranial branch occlusion. There is no evidence of intracranial stenosis. There are no lesions suspicious for aneurysm. IMPRESSION: Unremarkable MR angiography of the [place]. Electronically signed by: Abisai Barillas M.D. 06/08/2016 5:07 PM Dictated Date/Time: 06/08/2016 5:05 PM
[2016-06-08] MEDS ORDERED: GADAVIST IV PRN (17:15)
--- NOTE | 2016-06-08 17:17 | DIAGNOSTIC IMAGING REPORT ---
NECK MRA HISTORY: Transient ischemic attack TECHNIQUE: Xufr-gl-wlcxko and gadolinium-enhanced MRA of the neck was performed both before and after the intravenous administration of contrast. All measurements were calculated based on NASCET criteria. COMPARISON STUDY: Carotid Doppler ultrasound dated 06/08/2016 FINDINGS: The aortic arch and proximal great vessels are widely patent. There is no significant stenosis, occlusion, or dissection identified within the bilateral common carotid, internal carotid, or vertebral arteries. IMPRESSION: No significant stenosis, occlusion, or dissection identified within the carotid or vertebral arteries. Electronically signed by: Abisai Barillas M.D. 06/08/2016 5:16 PM Dictated Date/Time: 06/08/2016 5:14 PM
[2016-06-08] MEDS ORDERED: LISINOPRIL 5 MG TAB PO ONE (18:30)
[2016-06-08] MEDS: METOPROLOL TARTRATE 25 MG TAB PO SCH (20:19)
[2016-06-08] MEDS: ENOXAPARIN 40 MG/0.4 ML SYR SC SCH (20:20)
[2016-06-09 01:01] VITALS: BP 146/71; PULSE 69
[2016-06-09 03:17] VITALS: BP 149/75; PULSE 58; TEMP 36.6; O2SAT 96
[2016-06-09 07:49] VITALS: BP 159/72; PULSE 65; TEMP 36.7; O2SAT 96
[2016-06-09] MEDS: OMEGA-3 (PURIFIED FISH OIL) 1 GM CAP PO SCH (08:28)
[2016-06-09] MEDS: MAGNESIUM OXIDE 400 MG TAB PO SCH (08:29)
[2016-06-09] MEDS: CYANOCOBALAMIN 500 MCG TAB (VIT B-12) PO SCH (08:29)
[2016-06-09] MEDS: MULTIVITAMIN TAB PO SCH (08:29)
[2016-06-09] MEDS: ASPIRIN/ALUM/MAGNES/CAL CARB 325 MG TAB PO SCH (08:30)
[2016-06-09] MEDS: METOPROLOL TARTRATE 25 MG TAB PO SCH (08:30)
[2016-06-09] MEDS: INSULIN ASPART 100 UNITS/ML 3 ML PEN SC SCH ×2 (08:36→11:52)
[2016-06-09] MEDS: INSULIN GLARGINE SOLOSTAR 100 UNITS/ML 3 ML PEN SC SCH (08:37)
[2016-06-09] MEDS ORDERED: LISINOPRIL 10 MG TAB PO SCH (09:00)
--- NOTE | 2016-06-09 10:06 | Pharmacy Progress Note ---
Glycemic Control: Progress Nt Date of Service Jun 09, 2016. Scope Glycemic Pharmacist consulted by Dr Palacios on 06/07/16 for glycemic control and to write orders per [facility] inpatient glycemic control protocol. Objective Accuchecks BSG (last 24hrs): Test 06/08/16 11:07 06/08/16 17:53 06/08/16 19:54 06/09/16 07:01 Bedside Glucose 184 mg/dl (70-99) 147 mg/dl (70-99) 192 mg/dl (70-99) 178 mg/dl (70-99) HbA1c: Test 06/07/16 16:33 Hemoglobin A1c 7.5 % (4.5-5.6) H Recent Pertinent Medications Outpatient Anti-diabetic Regimen: * Lantus 15 units Q AM + 25 units Q PM * Glipizide 5mg PO BID * Metformin 1gm PO BID * A1c = 7.5 % 06/07/16 The patient is currently receiving: * Basal insulin: Lantus 11 units every 12 hours * Correctional Insulin: Novolog Correction per scale ACHS Goal Range: Low 110 mg/dL - High 140 mg/dL Correction Factor: 25 mg/dL/unit * Prandial insulin: Per carb ratio of 1 unit per 10 grams CHO consumed * Oral Agents: None currently Risk Factors for Insulin Resistance: * Diet: ordered T2DM / AHA diet Assessment & Plan ASSESSMENT: 06/07/16 * Type 2 diabetic admitted this evening following a episode of aphasia; possible TIA * Patient is managed w/ 2 oral hypoglycemics and basal insulin as outpatient; level of control unknown, A1c has been ordered and results are pending * Provider's orders for Lantus and Novolog are reasonable starting points for this patient, roughly equivalent to anticipated total daily insulin dose of ~ 0.5units/kg/day. * Only suggestion would be to increase the Novolog doses slightly based upon weight, and I would add a hold parameter to the Lantus order given last two BSGs in the low 100's 06/09/16 * A1c 7.5%, slightly high for patient's age and co-morbidities. Continue goal range. * BSGs slightly above goal range, will tighten CF and CR slightly. May need to also increase Lantus, consider tomorrow. PLAN FOR INPATIENT GLYCEMIC CONTROL: * Continuing Lantus 11 units SQ BID - hold if BSG less than 110 * Changing correction factor to 20 mg/dl/unit * Changing carb ratio to 1 unit per 8 grams CHO consumed * Changing goal range to Low 110 mg/dL - High 140 mg/dL * Please note that the plan above was derived based on current level of insulin resistance and hospital stress. These recommendations are appropriate for inpatient admission only. Plan of care upon discharge will need to be reassessed to avoid potential outpatient hypo/hyperglycemia. Thank you.
--- NOTE | 2016-06-09 10:17 | Progress Note ---
Internal Med Progress Note Date of Service: Jun 09, 2016. Provider Documentation: SUBJECTIVE: Patient is doing well and denies any complaints. No aphasia, localized weakness, nausea, vomiting, headaches, numbness/tingling, facial asymmetry, fever, chills. Tele- HR is back to normal 50-70s, currently 80s OBJECTIVE: Vital Signs-as noted below Exam: General-AAOX3, obese, no distress Eyes-PERRLA, No icterus Neck-Supple, no bruits Lungs-AEBE, no wheezing, crackles Heart-S1, S2 normal, no murmurs Abdomen-Soft, non tender, non distended, BS present Extremities-No edema Neuro-AAOX3, Cranial nerves intact, Power 5/5 all extremities Lab data as noted below. ASSESSMENT & PLAN: Assessment and plan: 70 yo M with HTN presented with transient expressive aphasia for <1 minute. TIA: Had < 1 minute episode of expressive aphasia for which he was transferred from [facility] to [facility]. Symptoms resolved on evaluation in ED and by admitting physician. No deficits on my evaluations. Risk factors: Hx of Atrial fibrillation (was on coumadin x 7 years till few days ago - indication for DVT/PE), HTN -On ASA 325 mg (increased from 81 mg)--> Will change it to 81 mg as adding back coumadin. Add atorvastatin 40 mg q HS (TGS-407, unable to calculate LDL) -Work up- MRI was done last week for memory loss, possible shuffled gait x 6 months--> negative per , Carotid US done too- negative per , Holter monitor- no A fib or bradycardia. MRI- No new stroke, MRA head/neck- Normal, Echo with bubble study- EF 55-60%, Grade II diastolic dysfunction, Intact Interatrial septum. -Discussed with neurology--> Will re - start coumadin with bridging with lovenox (once a day with creatinine clearance 40s) due to TIA and prior hx of Atrial fibrillation. May consider cardionet outpatient. SINUS BRADYCARDIA, ASYMPTOMATIC- Resolved, now 50-70s -HR overnight did drop down to as low as 30 on 06/08/16 night, asymptomatic. Did not use his CPAP mask. Received 2 doses of IV Labetalol 10 mg in ER + routine metoprolol 50 mg & no CPAP use ---> caused bradycardia, now resolved. -Decreased metoprolol to 25 mg PO BID with holding parameters for HR < 50 (Due to bradycardia). May consider increasing dose back to 50 mg PO BID outpatient if HR goes up. -Monitored tele strips- bradycardia resolved HX OF ATRIAL FIBRILLATION--> sinus bradycardia --> NSR today -On Metoprolol 50 mg PO BID--> reduced it to 25 mg po bid due to sinus bradycardia with holding parameters. Was changed from Atenolol to Metoprolol in March 2016 -Off coumadin since few days . Was on it for PE/DVT mainly 7 years ago/. Restart coumadin as mentioned above -Holter monitor- few weeks ago- no issues per . 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 -Restarted due to TIA as mentioned above HTN- Stable -Continue with lisinopril, lopressor DM-II Hold PO medications -ISS, Accuchecks BARBARA- On CPAP DVT proph: Lovenox SQ Full Code Dispo Ok to discharge today -home Cleared by neurology Updated family about discharge plans and discussed with neurology as well Vital Signs: Date Time Temp Pulse Resp B/P Pulse Ox O2 Delivery O2 Flow Rate FiO2 06/09/16 08:00 Room Air 06/09/16 07:49 36.7 65 18 159/72 96 Room Air 06/09/16 04:02 Room Air 06/09/16 03:17 36.6 58 18 149/75 96 CPAP 06/09/16 01:01 69 146/71 06/09/16 00:02 Room Air 06/08/16 23:48 36.5 52 18 177/84 99 CPAP 06/08/16 20:00 Room Air 06/08/16 18:48 36.5 72 19 187/88 95 Room Air 06/08/16 16:00 98 Room Air 06/08/16 15:19 36.7 66 19 181/83 98 Room Air 06/08/16 12:00 98 Room Air 06/08/16 11:34 36.5 55 19 175/82 98 Lab Results: Results Past 24 Hours Test 06/08/16 11:07 06/08/16 11:45 06/08/16 17:53 06/08/16 19:54 Range/Units Bedside Glucose 184 147 192 70-99 mg/dl Test 06/09/16 07:01 Range/Units Bedside Glucose 178 70-99 mg/dl
[2016-06-09] MEDS ORDERED: LSN5 PO (10:19)
[2016-06-09] MEDS ORDERED: LPT40 PO (10:19)
[2016-06-09] MEDS ORDERED: WARF5TAB90 PO (10:19)
[2016-06-09] MEDS ORDERED: METO50TA16 PO (10:19)
[2016-06-09] MEDS ORDERED: ENOX60IN SQ (10:20)
--- NOTE | 2016-06-09 10:24 | Discharge Instructions ---
Discharge Instructions Date of Service Jun 09, 2016. Admission Reason for Admission: Transient Ischemic Attack Discharge Discharge Diagnosis / Problem: 1. TIA (Mini Stroke) 2. Sinus bradycardia, resolved Discharge Goals Goal(s): Increase independence, Improve disease control, Diagnostic testing, Therapeutic intervention, Prevent Disease Progression Activity Recommendations Activity Limitations: resume your previous activity . Instructions / Follow-Up Instructions / Follow-Up MEDICATION CHANGES: 1. New medication: Atorvastatin 40 mg q HS for cholesterol for TIA .Triglycerides is high and needs to be followed up outpatient. Life style modification- Diet control, exercise recommended 2. Decreased Metoprolol to 25 mg PO BID from 50 mg PO BID due to bradycardia. May need to go back up to original dose if HR increases 3. New medication: Coumadin 5 mg daily till further instructed by coumadin clinic. Lovenox 60 mg SQ to be taken daily with coumadin till INR is therapeutic between 2-3 4. Increased lisinopril to 10 mg daily from 5 mg due to uncontrolled BP. MONITOR : 1. BP due to changes in medications as above 2. INR outpatient at coumadin clinic 3. Heart rate as metoprolol decreased to half dose. FOLLOW UP 1. Follow up with PCP in 1 week at [place]. Please call to schedule an appt date 2. Follow up with coumadin clinic. We will make arrangements for it and you will receive call from Clinic Current Hospital Diet Patient's current hospital diet: AHA Diet (Heart Healthy), Diabetes Type 2 Diet Discharge Diet Recommended Diet: AHA Diet (Heart Healthy), Low Sodium Diet (2gm Na), Diabetes Type 2 Diet Procedures Procedures Performed: Cardiac monitoring MRI brain MRA head/neck Carotid ultrasound Echocardiogram CXR CT scan head Pending Studies Studies pending at discharge: no Laboratory Results Hemoglobin A1c Test 06/07/16 16:33 Range/Units Estimated Average Glucose 169 mg/dl Hemoglobin A1c 7.5 H 4.5-5.6 % Lipid Panel Test 06/08/16 05:55 Range/Units Triglycerides Level 407 H 0-150 mg/dl Cholesterol Level 192 0-200 mg/dl HDL Cholesterol 25 mg/dl Cholesterol/HDL Ratio 7.7 LDL Cholesterol, Calculated mg/dl Medical Emergencies . Who to Call and When: Medical Emergencies: If at any time you feel your situation is an emergency, please call 911 immediately. . Non-Emergent Contact Non-Emergency issues call your: Primary Care Provider . . "Provider Documentation" section prepared by Monica Leger. VTE Core Measure Inpt VTE Proph given/why not?: Enoxaparin (Lovenox)SQ
[2016-06-09 10:30] VITALS: BP 159/72; PULSE 65; TEMP 36.7; O2SAT 96
[2016-06-09] MEDS ORDERED: LOVENOX TEACHING KIT SCH (10:30)
--- NOTE | 2016-06-09 10:51 | Discharge Summary ---
Discharge Summary Date of Service Jun 09, 2016. Discharge Summary Admission Date: Jun 07, 2016 at 18:24 Discharge Date: Jun 09, 2016 Discharge Disposition: Home Admission Information HPI (per Admitting provider): 70 yoM with HTN presents with difficulty speaking for <1 minute today while driving through the bank. He reports sitting in his car and went to speak to the back commercial teller, and although everything sounded clear in his head, the words came out garbled. He was unable to speak correctly for less than one minute and spontaneously cleared. He reports having a headache in the posterior head for the past two days, which is different for him, but denies any acute visual changes, drooling, facial droop, difficulty with or painful swallowing, difficulty ambulating before or after the event or any other symptom including no chest pain, shortness of breath, numbness or tingling, palpitations, abdominal pain, UTI symptoms or cold symptoms. Nothing like this has happened to him before and he denies a history of stroke or heart disease. He is overweight, has BARBARA and hypertension and receives his care through the [facility]. He just completed a heat CT and MRI of the brain last week for workup of shuffled gait for the past 6 months along with some mild memory loss for the past year. He was incidentally found to be B12 deficient, and found to have low Mg per 's report. He is a poorly controlled diabetic with apparent eye issues but no known neuropathy or other diabetic complication. He was told he needed a new spectacle prescription recently and was looking to change his glasses soon. Currently, he is without neuro deficit, headache or any other active issue at this time. He reports a family history of TIA in his sister, and a stroke in his aunt. He denies any history of migraines or seizures, and although he didn't check his sugar today, he denies any low blood sugars and reports eating breakfast and feeling well prior to and after the event. Physical Exam (per Admitting): GEN: WNWD, in no acute distress, alert and appropriate HEENT: NC/AT, PERRL, normal sclerae CARDIO: reg rate, S1/2 heard without m/g/r LUNGS: CTA bilaterally, no crackles, rales or wheezes, good diaphragmatic excursion ABD: soft, protuberant, non-tender, non-distended, no rebound or guarding, +BS EXTREMITY: RP and DP palpable 2+ bilat, no LE swelling or edema, extremities are warm and well-perfused NEURO: CN 2-12 intact, sensation intact throughout, coordination intact (finger to nose, heel to lan, Pham) , no pronator drift, 2 BR reflex bilat, could not elicit knee reflexes. Gait was assessed at bedside and was limited as patient was trailing IV pole and hooked up to monitor, however, no turning en bloc and no shuffled gait was apparent. MUSC: 5/5 strength throughout, no focal deficits SKIN: warm and dry Hospital Course Assessment and plan: 70 yo M with HTN presented with transient expressive aphasia for <1 minute. TIA: Had < 1 minute episode of expressive aphasia for which he was transferred from [facility] to [facility]. Symptoms resolved on evaluation in ED and by admitting physician. No deficits on my evaluations. Risk factors: Hx of Atrial fibrillation (was on coumadin x 7 years till few days ago - indication for DVT/PE), HTN -On ASA 325 mg (increased from 81 mg)--> Will change it to 81 mg as adding back coumadin. Add atorvastatin 40 mg q HS (TGS-407, unable to calculate LDL) -Work up- MRI was done last week for memory loss, possible shuffled gait x 6 months--> negative per , Carotid US done too- negative per , Holter monitor- no A fib or bradycardia. MRI- No new stroke, MRA head/neck- Normal, Echo with bubble study- EF 55-60%, Grade II diastolic dysfunction, Intact Interatrial septum. -Discussed with neurology--> Will re - start coumadin with bridging with lovenox (once a day with creatinine clearance 40s) due to TIA and prior hx of Atrial fibrillation. May consider cardionet outpatient. SINUS BRADYCARDIA, ASYMPTOMATIC- Resolved, now 50-70s -HR overnight did drop down to as low as 30 on 06/08/16 night, asymptomatic. Did not use his CPAP mask. Received 2 doses of IV Labetalol 10 mg in ER + routine metoprolol 50 mg & no CPAP use ---> caused bradycardia, now resolved. -Decreased metoprolol to 25 mg PO BID with holding parameters for HR < 50 (Due to bradycardia). May consider increasing dose back to 50 mg PO BID outpatient if HR goes up. -Monitored tele strips- bradycardia resolved HX OF ATRIAL FIBRILLATION--> sinus bradycardia --> NSR today -On Metoprolol 50 mg PO BID--> reduced it to 25 mg po bid due to sinus bradycardia with holding parameters. Was changed from Atenolol to Metoprolol in March 2016 -Off coumadin since few days . Was on it for PE/DVT mainly 7 years ago/. Restart coumadin as mentioned above -Holter monitor- few weeks ago- no issues per . 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 -Restarted due to TIA as mentioned above HTN- Stable -Continue with lisinopril, lopressor DM-II Hold PO medications -ISS, Accuchecks BARBARA- On CPAP DVT proph: Lovenox SQ Full Code Dispo Ok to discharge today -home Cleared by neurology Updated family about discharge plans and discussed with neurology as well Total time spent on discharge = This includes examination of the patient, discharge planning, medication reconciliation, and communication with other providers. Discharge Instructions Discharge Discharge Diagnosis / Problem: 1. TIA (Mini Stroke) 2. Sinus bradycardia, resolved Discharge Goals Goal(s): Increase independence, Improve disease control, Diagnostic testing, Therapeutic intervention, Prevent Disease Progression Activity Recommendations Activity Limitations: resume your previous activity . Instructions / Follow-Up Instructions / Follow-Up MEDICATION CHANGES: 1. New medication: Atorvastatin 40 mg q HS for cholesterol for TIA .Triglycerides is high and needs to be followed up outpatient. Life style modification- Diet control, exercise recommended 2. Decreased Metoprolol to 25 mg PO BID from 50 mg PO BID due to bradycardia. May need to go back up to original dose if HR increases 3. New medication: Coumadin 5 mg daily till further instructed by coumadin clinic. Lovenox 60 mg SQ to be taken daily with coumadin till INR is therapeutic between 2-3 4. Increased lisinopril to 10 mg daily from 5 mg due to uncontrolled BP. MONITOR : 1. BP due to changes in medications as above 2. INR outpatient at coumadin clinic 3. Heart rate as metoprolol decreased to half dose. FOLLOW UP 1. Follow up with PCP in 1 week at [place]. Please call to schedule an appt date 2. Follow up with coumadin clinic. We will make arrangements for it and you will receive call from Clinic Current Hospital Diet Patient's current hospital diet: AHA Diet (Heart Healthy), Diabetes Type 2 Diet Discharge Diet Recommended Diet: AHA Diet (Heart Healthy), Low Sodium Diet (2gm Na), Diabetes Type 2 Diet Procedures Procedures Performed: Cardiac monitoring MRI brain MRA head/neck Carotid ultrasound Echocardiogram CXR CT scan head Pending Studies Studies pending at discharge: no Laboratory Results Hemoglobin A1c Test 06/07/16 16:33 Range/Units Estimated Average Glucose 169 mg/dl Hemoglobin A1c 7.5 H 4.5-5.6 % Lipid Panel Test 06/08/16 05:55 Range/Units Triglycerides Level 407 H 0-150 mg/dl Cholesterol Level 192 0-200 mg/dl HDL Cholesterol 25 mg/dl Cholesterol/HDL Ratio 7.7 LDL Cholesterol, Calculated mg/dl Medical Emergencies . Who to Call and When: Medical Emergencies: If at any time you feel your situation is an emergency, please call 911 immediately. . Non-Emergent Contact Non-Emergency issues call your: Primary Care Provider . . "Provider Documentation" section prepared by Monica Leger. VTE Core Measure Inpt VTE Proph given/why not?: Enoxaparin (Lovenox)SQ
--- NOTE | 2016-06-09 11:03 | Discharge Summary ---
Discharge Summary Date of Service Jun 09, 2016. Discharge Summary Admission Date: Jun 07, 2016 at 18:24 Discharge Date: Jun 09, 2016 Discharge Disposition: Home Principal Diagnosis: 1. TIA 2. Sinus bradycardia, Resolved Secondary Diagnoses/Problems: 1. Hx of Atrial Fibrillation 2. DM-2 3. Hypertension 4. BARBARA Procedures: Tele monitoring MRI brain MRA Head/Neck Echo with bubble study CXR CT head Consultations: Neurology, Dr Hernandez Pending Studies/Follow-Up: Instructions / Follow-Up MEDICATION CHANGES: 1. New medication: Atorvastatin 40 mg q HS for cholesterol for TIA .Triglycerides is high and needs to be followed up outpatient. Life style modification- Diet control, exercise recommended 2. Decreased Metoprolol to 25 mg PO BID from 50 mg PO BID due to bradycardia. May need to go back up to original dose if HR increases 3. New medication: Coumadin 5 mg daily till further instructed by coumadin clinic. Lovenox 60 mg SQ to be taken daily with coumadin till INR is therapeutic between 2-3 4. Increased lisinopril to 10 mg daily from 5 mg due to uncontrolled BP. MONITOR : 1. BP due to changes in medications as above 2. INR outpatient at coumadin clinic 3. Heart rate as metoprolol decreased to half dose. FOLLOW UP 1. Follow up with PCP in 1 week at [place]. Please call to schedule an appt date 2. Follow up with coumadin clinic. We will make arrangements for it and you will receive call from Clinic Medication Reconciliation New Medications: Atorvastatin (Atorvastatin Calcium) 40 Mg Tab 40 MG PO HS for 30 Days, #30 TAB Enoxaparin (Lovenox) 60 Mg/0.6 Ml Inj 60 MG SQ Q24H for 7 Days, #7 SYR Warfarin Sodium (Coumadin) 5 Mg Tab 5 MG PO DAILY for 30 Days, #30 TAB Changed Medications: Lisinopril (Lisinopril) 5 Mg Tab 10 MG PO QAM for 30 Days, #60 TAB 2 Refills (Changed from: 5 MG; Refills: ) Metoprolol Tartrate (Lopressor) (Lopressor) 50 Mg Tab 25 MG PO BID for 30 Days, #30 TAB 2 Refills (Changed from: 50 MG; Refills: ) Continued Medications: Aspirin (Aspir-81) 81 Mg Tab 1 TAB PO DAILY, TAB 3 Refills Fish Oil ([place]-3) 1 Ea Cap 1000 MG PO DAILY, CAP Glipizide (Glucotrol) 5 Mg Tab 5 MG PO BID, TAB Insulin Glargine (Lantus) 100 Unit/Ml Inj 15 UNITS SC QAM, VIAL Insulin Glargine (Lantus) 100 Unit/Ml Inj 25 UNITS SC QPM, VIAL Magnesium Oxide (Mag-Ox) 400 Mg Tab 400 MG PO DAILY, TAB Meloxicam (Mobic) 7.5 Mg Tab 15 MG PO for Pain, TAB PRN Metformin Hcl (Glucophage) 1,000 Mg Tab 1000 MG PO BID, TAB Multiple Vitamin (Multivitamin) 1 Tab Tab 1 TAB PO DAILY, TAB Admission Information HPI (per Admitting provider): 70 yoM with HTN presents with difficulty speaking for <1 minute today while [place]. He reports sitting in his car and went to speak to the back soil and plant scientist, and although everything sounded clear in his head, the words came out garbled. He was unable to speak correctly for less than one minute and spontaneously cleared. He reports having a headache in the posterior head for the past two days, which is different for him, but denies any acute visual changes, drooling, facial droop, difficulty with or painful swallowing, difficulty ambulating before or after the event or any other symptom including no chest pain, shortness of breath, numbness or tingling, palpitations, abdominal pain, UTI symptoms or cold symptoms. Nothing like this has happened to him before and he denies a history of stroke or heart disease. He is overweight, has BARBARA and hypertension and receives his care through the [facility]. He just completed a heat CT and MRI of the brain last week for workup of shuffled gait for the past 6 months along with some mild memory loss for the past year. He was incidentally found to be B12 deficient, and found to have low Mg per 's report. He is a poorly controlled diabetic with apparent eye issues but no known neuropathy or other diabetic complication. He was told he needed a new spectacle prescription recently and was looking to change his glasses soon. Currently, he is without neuro deficit, headache or any other active issue at this time. He reports a family history of TIA in his sister, and a stroke in his aunt. He denies any history of migraines or seizures, and although he didn't check his sugar today, he denies any low blood sugars and reports eating breakfast and feeling well prior to and after the event. Physical Exam (per Admitting): GEN: WNWD, in no acute distress, alert and appropriate HEENT: NC/AT, PERRL, normal sclerae CARDIO: reg rate, S1/2 heard without m/g/r LUNGS: CTA bilaterally, no crackles, rales or wheezes, good diaphragmatic excursion ABD: soft, protuberant, non-tender, non-distended, no rebound or guarding, +BS EXTREMITY: RP and DP palpable 2+ bilat, no LE swelling or edema, extremities are warm and well-perfused NEURO: CN 2-12 intact, sensation intact throughout, coordination intact (finger to nose, heel to lan, Pham) , no pronator drift, 2 BR reflex bilat, could not elicit knee reflexes. Gait was assessed at bedside and was limited as patient was trailing IV pole and hooked up to monitor, however, no turning en bloc and no shuffled gait was apparent. MUSC: 5/5 strength throughout, no focal deficits SKIN: warm and dry Hospital Course Assessment and plan: 70 yo M with HTN presented with transient expressive aphasia for <1 minute. TIA: Had < 1 minute episode of expressive aphasia for which he was transferred from [facility] to [facility] ER. Symptoms resolved on evaluation in ED and by admitting physician. No deficits on my evaluations. Risk factors: Hx of Atrial fibrillation (was on coumadin x 7 years till few days ago - indication for DVT/PE), HTN -On ASA 325 mg (increased from 81 mg)--> Will change it to 81 mg as adding back coumadin. Add atorvastatin 40 mg q HS (TGS-407, unable to calculate LDL) -Work up- MRI was done last week for memory loss, possible shuffled gait x 6 months--> negative per , Carotid US done too- negative per , Holter monitor- no A fib or bradycardia. MRI- No new stroke, MRA head/neck- Normal, Echo with bubble study- EF 55-60%, Grade II diastolic dysfunction, Intact Interatrial septum. -Discussed with neurology--> Will re - start coumadin with bridging with lovenox (once a day with creatinine clearance 40s) due to TIA and prior hx of Atrial fibrillation. May consider cardionet outpatient. SINUS BRADYCARDIA, ASYMPTOMATIC- Resolved, now 50-70s -HR overnight did drop down to as low as 30 on 06/08/16 night, asymptomatic. Did not use his CPAP mask. Received 2 doses of IV Labetalol 10 mg in ER + routine metoprolol 50 mg & no CPAP use ---> caused bradycardia, now resolved. -Decreased metoprolol to 25 mg PO BID with holding parameters for HR < 50 (Due to bradycardia). May consider increasing dose back to 50 mg PO BID outpatient if HR goes up. -Monitored tele strips- bradycardia resolved HX OF ATRIAL FIBRILLATION--> sinus bradycardia --> NSR today -On Metoprolol 50 mg PO BID--> reduced it to 25 mg po bid due to sinus bradycardia with holding parameters. Was changed from Atenolol to Metoprolol in March 2016 -Off coumadin since few days . Was on it for PE/DVT mainly 7 years ago/. Restart coumadin as mentioned above -Holter monitor- few weeks ago- no issues per . 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 -Restarted due to TIA as mentioned above HTN- Stable -Continue with lisinopril, lopressor DM-II Hold PO medications -ISS, Accuchecks BARBARA- On CPAP DVT proph: Lovenox SQ Full Code Dispo Ok to discharge today -home Cleared by neurology Updated family about discharge plans and discussed with neurology as well Total time spent on discharge = 35 minutes This includes examination of the patient, discharge planning, medication reconciliation, and communication with other providers. Discharge Instructions Goal(s): Increase independence, Improve disease control, Diagnostic testing, Therapeutic intervention, Prevent Disease Progression Activity Recommendations Activity Limitations: resume your previous activity . Instructions / Follow-Up Instructions / Follow-Up MEDICATION CHANGES: 1. New medication: Atorvastatin 40 mg q HS for cholesterol for TIA .Triglycerides is high and needs to be followed up outpatient. Life style modification- Diet control, exercise recommended 2. Decreased Metoprolol to 25 mg PO BID from 50 mg PO BID due to bradycardia. May need to go back up to original dose if HR increases 3. New medication: Coumadin 5 mg daily till further instructed by coumadin clinic. Lovenox 60 mg SQ to be taken daily with coumadin till INR is therapeutic between 2-3 4. Increased lisinopril to 10 mg daily from 5 mg due to uncontrolled BP. MONITOR : 1. BP due to changes in medications as above 2. INR outpatient at coumadin clinic 3. Heart rate as metoprolol decreased to half dose. FOLLOW UP 1. Follow up with PCP in 1 week [place]. Please call to schedule an appt date 2. Follow up with coumadin clinic. We will make arrangements for it and you will receive call from Clinic Current Hospital Diet Patient's current hospital diet: AHA Diet (Heart Healthy), Diabetes Type 2 Diet Discharge Diet Recommended Diet: AHA Diet (Heart Healthy), Low Sodium Diet (2gm Na), Diabetes Type 2 Diet Procedures Procedures Performed: Cardiac monitoring MRI brain MRA head/neck Carotid ultrasound Echocardiogram CXR CT scan head Pending Studies Studies pending at discharge: no Laboratory Results Hemoglobin A1c Test 06/07/16 16:33 Range/Units Estimated Average Glucose 169 mg/dl Hemoglobin A1c 7.5 H 4.5-5.6 % Lipid Panel Test 06/08/16 05:55 Range/Units Triglycerides Level 407 H 0-150 mg/dl Cholesterol Level 192 0-200 mg/dl HDL Cholesterol 25 mg/dl Cholesterol/HDL Ratio 7.7 LDL Cholesterol, Calculated mg/dl Medical Emergencies . Who to Call and When: Medical Emergencies: If at any time you feel your situation is an emergency, please call 911 immediately. . Non-Emergent Contact Non-Emergency issues call your: Primary Care Provider . . "Provider Documentation" section prepared by Monica Leger. VTE Core Measure Inpt VTE Proph given/why not?: Enoxaparin (Lovenox)SQ
--- NOTE | 2016-06-09 11:27 | PROGRESS NOTE ---
DATE: 06/09/2016 DATE: 06/09/2016. SUBJECTIVE: I am seeing Mr. Beal in followup of an episode of expressive aphasia. He had been 10 days prior taken off Coumadin which he had been on as he remotely had a DVT/PE and that was complicated by atrial fibrillation. His MRI of the brain shows no acute infarction. 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 There is no evidence of significant ventriculomegaly. MRA of the head was unremarkable. MRA of the carotid arteries showed no significant stenosis. Echocardiography showed mild dilatation of the left atrium, no atrial septal defect. It appears that the patient has not had any further bradycardia. He has not had any recurrent events clinically. OBJECTIVE: GENERAL: He is awake, alert. There is normal speech and language. His affect is appropriate. Naming is normally and he follows simple commands. VITAL SIGNS: 36.7, 65, 18, 159/72, 96%. NEUROLOGIC: The patient is awake and alert. There are no field cuts, facial asymmetry, no dysarthria is noted. Strength is full. [id number] and [id number] are normal. IMPRESSION: Presumed left cortical transient ischemia. Given a prior history of DVT, transient, remote atrial fibrillation and the cortical presentation of this event recommend anticoagulation with Coumadin. One could perform an outpatient CardioNet monitor to see if there is any atrial fibrillation and it may be helpful as well to identify any asymptomatic bradycardia as was seen during this admission. I would also recommend that the patient be treated with antiplatelet therapy with aspirin. Vigorous control of vascular risk factors is recommended and I would recommend that he see us in followup if his insurance permits. I gave his one of our business cards. He is scheduled to see the [facility] in [place] but it would be their preference to be seen closer. BO
[2016-06-13 21:29] LABS: ANTITHROMBINIII ACTIVITY** 97 % activity (80-120); B2 GLYCOPROTEIN IGA <9 SAU (<=20); B2 GLYCOPROTEIN IGG <9 SGU (<=20); B2 GLYCOPROTEIN IGM <9 SMU (<=20); LUPUS ANTICOAGULANT** TC36573X Negative (Negative); PROTEIN C ACTIVITY** TC 1777X 132 % (70-180); PROTEIN S ACT(FUNCT)**1779X 83 % (70-150)
== END 2016-06-09 12:02 | disposition home or self-care (01) | DRG 69 ==
LOC: ENRESERVTM → CANRESERV → ENRESERVDT → C.EDB 15:29 → C.2T 18:24
PROVIDERS: ADMIT Hospitalist; ATTEND Internal Medicine
DX: G45.9 Transient cerebral ischemic attack, unspecified (principal); E11.319 Type 2 diabetes mellitus with unspecified diabetic retinopathy without macular edema; I10 Essential (primary) hypertension; E66.9 Obesity, unspecified; E53.8 Deficiency of other specified B group vitamins; E11.65 Type 2 diabetes mellitus with hyperglycemia; I48.91 Unspecified atrial fibrillation; F80.1 Expressive language disorder; G47.33 Obstructive sleep apnea (adult) (pediatric); R00.1 Bradycardia, unspecified; Z96.612 Presence of left artificial shoulder joint; Z68.36 Body mass index [BMI] 36.0-36.9, adult; Z86.711 Personal history of pulmonary embolism; Z86.718 Personal history of other venous thrombosis and embolism; Z86.73 Personal history of transient ischemic attack (TIA), and cerebral infarction without residual deficits; Z82.0 Family history of epilepsy and other diseases of the nervous system; Z81.8 Family history of other mental and behavioral disorders; Z82.3 Family history of stroke; Z83.3 Family history of diabetes mellitus; Z79.4 Long term (current) use of insulin; Z79.82 Long term (current) use of aspirin; Z79.84 Long term (current) use of oral hypoglycemic drugs; Z79.899 Other long term (current) drug therapy